=== PATIENT | male | born 2000 | race Caucasian/White ===

== ENCOUNTER 2023-04-13 19:21 | Inpatient (IN) | payer MEDICAID ==
[~2023-04-13] VITALS: Ht 170.2 cm; Wt 58.5 kg
[2023-04-13] MEDS ORDERED: KETOROLAC TROMETHAMINE 30 MG INJ ONE (19:42)
[2023-04-13] MEDS ORDERED: HYDROCODONE/APAP 5-325MG TABLET ONE (19:42)
[2023-04-13] MEDS ORDERED: HYDROCODONE/APAP 5-325MG TABLET PO ONE (19:45)
[2023-04-13] MEDS ORDERED: KETOROLAC TROMETHAMINE 30 MG INJ IM ONE (19:45)
[2023-04-13 19:55] LABS: *BILIRUBIN,URIN NEGATIVE (NEGATIVE); *BLOOD, URINE 2+ (NEGATIVE); *CLARITY,URINE CLEAR (CLEAR); *COLOR,URINE YELLOW (YELLOW); *KETONES,URINE TRACE (NEGATIVE); *PROTEIN,URINE TRACE (NEGATIVE); *UROBILINOGEN,URINE 0.2 E.U./dl (NORMAL); LEUKOCYTE ESTERASE ,URINE NEGATIVE (NEGATIVE); NITRITE, URINE NEGATIVE (NEGATIVE); UGLUCOSE NEGATIVE (NEGATIVE)
[2023-04-13 20:12] LABS: RBC,URINE 20-50 /HPF (0-3)
[2023-04-13 20:14] LABS: BACTERIA,URINE FEW /HPF (NONE SEEN); SQUAMOUS EPITHELIAL CELL,UR FEW /HPF (NONE SEEN); WBC,URINE 0-3 /HPF (0-3)
[2023-04-13 21:17] LABS: BASOPHILS % (AUTO) 0.7 % (0.0-2.0); EOSINOPHILS # (AUTO) 0.1 K/uL (0.0-0.7); EOSINOPHILS % (AUTO) 1.8 % (0.0-7.0); HEMOGLOBIN 15.8 g/dL (12.5-16.3); LYMPHOCYTES # (AUTO) 1.9 K/uL (0.8-4.8); LYMPHOCYTES % (AUTO) 30.9 % (20.5-51.5); MEAN CORPUSCULAR HEMOGLOBIN 29.7 uug (23.8-33.4); MEAN CORPUSCULAR HGB CONC 34 g/dL (32.5-36.3); MEAN CORPUSCULAR VOLUME 88.5 fL (73.0-96.2); MONOCYTES # (AUTO) 0.5 K/uL (0.1-1.30); MONOCYTES % (AUTO) 7.9 % (0.0-11.0); NEUTROPHILS # (AUTO) 3.6 K/uL (1.8-8.9); NEUTROPHILS % (AUTO) 58.7 % (38.5-71.5); PLATELET COUNT (AUTO) 180 K/uL (152-348); RED BLOOD CELL COUNT(AUTO) 5.32 MIL/uL (4.06-5.63); WHITE BLOOD COUNT (AUTO) 6.1 K/uL (3.6-10.2)
[2023-04-13 21:30] LABS: ALBUMIN 3.7 g/dL (3.4-5.0); BILIRUBIN,TOTAL 0.6 mg/dL (0.2-1.0); CALCIUM 7.5 mg/dL (8.5-10.1); CREATININE 0.8 mg/dL (0.6-1.3); TOTAL PROTEIN, SERUM 6.6 g/dL (6.4-8.2)
[2023-04-13 21:31] LABS: DIFFERENTIAL COMMENT 1
[2023-04-13 21:33] LABS: POTASSIUM 2.7 mmol/L (3.5-5.1)
[2023-04-13] MEDS ORDERED: POTASSIUM CHLORIDE 20 MEQ TAB.PRT.SR ONE (21:42)
[2023-04-13] MEDS ORDERED: POTASSIUM CHLORIDE 20 MEQ TAB.PRT.SR PO ONE (21:45)
[2023-04-13] MEDS ORDERED: CALCIUM GLUCONATE 1 GM/10 ML VIAL IV ONE (22:00)
[2023-04-13] MEDS ORDERED: CALCIUM GLUCONATE IV 1 GM in IV NORMAL SALINE 100 ML IV ONE (22:00)
[2023-04-13] MEDS: POTASSIUM CHLORIDE 50 ML IV SCH (23:06)
[2023-04-14] VITALS (7 sets, daily range): BP systolic 101–136; BP diastolic 57–67; TEMP 95.6–98; O2SAT 99–100
[2023-04-14] MEDS ORDERED: ONDANSETRON 4 MG/2 ML VIAL IV PRN
[2023-04-14] MEDS ORDERED: ACETAMINOPHEN 325 MG TABLET PO PRN
[2023-04-14] MEDS ORDERED: MAGNESIUM HYDROXIDE 30 ML LIQUID UDC PO PRN
[2023-04-14] MEDS ORDERED: ZOLPIDEM 5 MG TABLET PO PRN
[2023-04-14] MEDS ORDERED: REMEDY ESSENTIAL ZINC PASTE 113 GM TP PRN
[2023-04-14 06:54] LABS: BASOPHILS % (AUTO) 0.7 % (0.0-2.0); EOSINOPHILS # (AUTO) 0.1 K/uL (0.0-0.7); EOSINOPHILS % (AUTO) 2.2 % (0.0-7.0); HEMATOCRIT 44.1 % (36.7-47.1); HEMOGLOBIN 14.6 g/dL (12.5-16.3); LYMPHOCYTES # (AUTO) 2.1 K/uL (0.8-4.8); LYMPHOCYTES % (AUTO) 32.2 % (20.5-51.5); MEAN CORPUSCULAR HEMOGLOBIN 29.7 uug (23.8-33.4); MEAN CORPUSCULAR HGB CONC 33 g/dL (32.5-36.3); MEAN CORPUSCULAR VOLUME 89.7 fL (73.0-96.2); MONOCYTES # (AUTO) 0.5 K/uL (0.1-1.30); NEUTROPHILS # (AUTO) 3.6 K/uL (1.8-8.9); NEUTROPHILS % (AUTO) 56.9 % (38.5-71.5); PLATELET COUNT (AUTO) 162 K/uL (152-348); RED BLOOD CELL COUNT(AUTO) 4.92 MIL/uL (4.06-5.63); RED CELL DISTRIBUTION WIDTH 13.4 % (12.1-16.2); WHITE BLOOD COUNT (AUTO) 6.4 K/uL (3.6-10.2)
[2023-04-14 07:10] LABS: DIFFERENTIAL COMMENT 1
[2023-04-14 07:12] LABS: CALCIUM 8.7 mg/dL (8.5-10.1); CREATININE 0.9 mg/dL (0.6-1.3); MAGNESIUM 2.1 mg/dL (1.8-2.4); PHOSPHOROUS 3.9 mg/dL (2.5-4.9); POTASSIUM 4.1 mmol/L (3.5-5.1)
[2023-04-15] VITALS: BP 96/55; TEMP 98.2; O2SAT 100
== END 2023-04-15 11:30 | disposition home or self-care (01) | DRG 143 ==
LOC: ER 19:23 → TELE3 23:14
PROVIDERS: ADMIT Nurse Practitioner Acute Care; ATTEND Internal Medicine
DX: J93.11 Primary spontaneous pneumothorax (principal); E83.51 Hypocalcemia; N20.0 Calculus of kidney; E87.1 Hypo-osmolality and hyponatremia; E87.6 Hypokalemia; R31.29 Other microscopic hematuria; Z20.822 Contact with and (suspected) exposure to COVID-19; E83.42 Hypomagnesemia; R94.31 Abnormal electrocardiogram [ECG] [EKG]; Z87.09 Personal history of other diseases of the respiratory system
CPT/HCPCS: 36415; 71045; 71250; 83690; 83735; 84100; 85025; 85730; 93005; A4663; G0378; J0610; J1885; J3480; J7040

== ENCOUNTER 2023-06-16 21:50 | Inpatient (IN) | payer MEDICAID ==
[~2023-06-16] VITALS: Ht 160 cm; Wt 57.2 kg
[2023-06-16] MEDS ORDERED: ACETAMINOPHEN ES 500 MG TABLET ONE (22:44)
[2023-06-16] MEDS ORDERED: ACETAMINOPHEN ES 500 MG TABLET PO ONE (22:45)
[2023-06-16] MEDS ORDERED: ONDANSETRON 4 MG/2 ML VIAL IV PRN (23:15)
[2023-06-16] MEDS ORDERED: MORPHINE SULFATE 2 MG/1 ML DISP.SYRIN IVP PRN (23:15)
[2023-06-17 06:48] LABS: BASOPHILS % (AUTO) 0.7 % (0.0-2.0); EOSINOPHILS # (AUTO) 0.1 K/uL (0.0-0.7); EOSINOPHILS % (AUTO) 2.3 % (0.0-7.0); HEMATOCRIT 42.1 % (36.7-47.1); HEMOGLOBIN 14.1 g/dL (12.5-16.3); MEAN CORPUSCULAR HEMOGLOBIN 30.2 uug (23.8-33.4); MEAN CORPUSCULAR HGB CONC 34 g/dL (32.5-36.3); MONOCYTES # (AUTO) 0.5 K/uL (0.1-1.30); MONOCYTES % (AUTO) 8.5 % (0.0-11.0); NEUTROPHILS # (AUTO) 3.3 K/uL (1.8-8.9); NEUTROPHILS % (AUTO) 55.5 % (38.5-71.5); PLATELET COUNT (AUTO) 152 K/uL (152-348); RED BLOOD CELL COUNT(AUTO) 4.68 MIL/uL (4.06-5.63); RED CELL DISTRIBUTION WIDTH 13.3 % (12.1-16.2)
[2023-06-17 06:55] LABS: DIFFERENTIAL COMMENT 1
[2023-06-17 07:12] LABS: ALBUMIN 3.8 g/dL (3.4-5.0); BILIRUBIN,TOTAL 0.4 mg/dL (0.2-1.0); CALCIUM 8.7 mg/dL (8.5-10.1); CREATININE 0.8 mg/dL (0.6-1.3); PHOSPHOROUS 3.7 mg/dL (2.5-4.9); POTASSIUM 3.6 mmol/L (3.5-5.1); TOTAL PROTEIN, SERUM 7.1 g/dL (6.4-8.2)
[2023-06-17 15:00] VITALS: BP 105/55; TEMP 97.8; O2SAT 100
[2023-06-17] MEDS: ACETAMINOPHEN 325 MG TABLET PO PRN ×2 (19:04→23:26)
[2023-06-17 20:49] VITALS: BP 103/59; TEMP 98; O2SAT 99
[2023-06-18 04:13] VITALS: O2SAT 99
[2023-06-18 06:08] VITALS: BP 105/55; TEMP 97.8; O2SAT 100
[2023-06-18 09:23] VITALS: BP 106/62; TEMP 98.2
[2023-06-18] MEDS ORDERED: IOHEXOL 300MG/ML 100 ML INFUS..BTL ONE (11:34)
[2023-06-18] MEDS ORDERED: SWABABLE VALVE TRANSFER SET EA MC ONE (11:35)
[2023-06-18] MEDS ORDERED: IV NORMAL SALINE 250 ML IV ONE (11:35)
[2023-06-18 12:53] VITALS: O2SAT 99
[2023-06-18 17:45] VITALS: BP 103/56; TEMP 98.2; O2SAT 99
== END 2023-06-18 20:10 | disposition short-term general hospital (02) | DRG 143 ==
LOC: ER 21:50 → TRANSITION 23:57 → TELE3 06-17 13:55
PROVIDERS: ADMIT Internal Medicine; ATTEND Internal Medicine
DX: J93.83 Other pneumothorax (principal); Z20.822 Contact with and (suspected) exposure to COVID-19
CPT/HCPCS: 36415; 71045; 71046; 71260; 84100; 85025; 85610; A9150; G0378; Q9967